=== PATIENT | female | born 1955 | race Caucasian/White ===

== ENCOUNTER 2024-04-21 15:16 | Inpatient (IN) | payer BC, MEDICARE ==
[~2024-04-21] VITALS: Ht 165.1 cm; Wt 65.8 kg
[2024-04-21 19:13] LABS: BASOPHILS % (AUTO) 0.4 % (0.0-2.0); EOSINOPHILS # (AUTO) 0.1 K/uL (0.0-0.7); EOSINOPHILS % (AUTO) 0.4 % (0.0-6.0); HEMATOCRIT 37 % (33-45); HEMOGLOBIN 12.3 g/dL (11.5-14.8); LYMPHOCYTES # (AUTO) 1.3 K/uL (0.8-4.8); LYMPHOCYTES % (AUTO) 9.7 % (20.0-44.0); MEAN CORPUSCULAR HEMOGLOBIN 32 PG (26.0-33.0); MEAN CORPUSCULAR HGB CONC 33 g/dl (31.0-36.0); MEAN CORPUSCULAR VOLUME 95 fL (82-100); MONOCYTES % (AUTO) 7.2 % (2.0-12.0); NEUTROPHILS % (AUTO) 82.3 % (43.0-81.0); PLATELET COUNT (AUTO) 284 K/uL (150-450); RED BLOOD CELL COUNT(AUTO) 3.88 MIL/uL (4.0-5.2); RED CELL DISTRIBUTION WIDTH 13.3 % (11.5-15.0); WHITE BLOOD COUNT (AUTO) 13.4 K/uL (4.3-11.0)
[2024-04-21] MEDS ORDERED: NORT75CA PO (19:25)
[2024-04-21] MEDS ORDERED: ATEN25TA PO (19:25)
[2024-04-21] MEDS ORDERED: QULIPTA PO (19:25)
[2024-04-21 19:53] LABS: CALCIUM, SERUM 8.9 mg/dL (8.5-10.1); CARBON DIOXIDE 27 mmol/L (21-32); CHLORIDE 106 mmol/L (98-107); GLUCOSE 100 mg/dL (74-106); POTASSIUM 3.9 mmol/L (3.5-5.1); SODIUM SERUM 141 mmol/L (136-145); UREA NITROGEN, BLOOD 19 mg/dL (7-18)
[2024-04-21] MEDS ORDERED: ONDANSETRON HCL/PF 4 MG/2 ML VIAL IVP PRN (20:00)
[2024-04-21] MEDS ORDERED: ACETAMINOPHEN 325 MG TABLET PO PRN (20:00)
[2024-04-21] MEDS ORDERED: MAGNESIUM HYDROXIDE 30 ML UDC PO PRN (20:00)
[2024-04-21] MEDS ORDERED: MAG HYDROX/AL HYDROX/SIMETH 30 ML UDC PO PRN (20:00)
[2024-04-21] MEDS ORDERED: Z GUARD REMEDY 4 OZ OINT TP PRN (20:00)
[2024-04-21] MEDS ORDERED: MORPHINE SULFATE INJ 2 MG/ML DISP.SYRIN ONE (20:16)
[2024-04-21] MEDS: MORPHINE SULFATE INJ 2 MG/ML DISP.SYRIN IV PRN (20:23)
[2024-04-21] MEDS: NORTRIPTYLINE HCL 25 MG CAPSULE PO SCH (22:42)
[2024-04-21] MEDS: ATENOLOL 50 MG TABLET PO SCH (22:42)
[2024-04-21 22:50] VITALS: BP 154/75; TEMP 97.7; O2SAT 96
[2024-04-21] MEDS: HYDROCODONE/APAP 5/325MG TABLET PO PRN (22:52)
[2024-04-22 07:35] LABS: BASOPHILS % (AUTO) 0.3 % (0.0-2.0); EOSINOPHILS # (AUTO) 0.2 K/uL (0.0-0.7); EOSINOPHILS % (AUTO) 2.2 % (0.0-6.0); HEMATOCRIT 33 % (33-45); HEMOGLOBIN 11.4 g/dL (11.5-14.8); LYMPHOCYTES % (AUTO) 12.4 % (20.0-44.0); MEAN CORPUSCULAR HEMOGLOBIN 33 PG (26.0-33.0); MEAN CORPUSCULAR HGB CONC 35 g/dl (31.0-36.0); MEAN CORPUSCULAR VOLUME 95 fL (82-100); MONOCYTES # (AUTO) 0.6 K/uL (0.1-1.30); MONOCYTES % (AUTO) 7.4 % (2.0-12.0); NEUTROPHILS # (AUTO) 6.4 K/uL (1.8-8.9); NEUTROPHILS % (AUTO) 77.7 % (43.0-81.0); PLATELET COUNT (AUTO) 252 K/uL (150-450); RED BLOOD CELL COUNT(AUTO) 3.44 MIL/uL (4.0-5.2); WHITE BLOOD COUNT (AUTO) 8.3 K/uL (4.3-11.0)
[2024-04-22 07:46] LABS: CALCIUM, SERUM 8.4 mg/dL (8.5-10.1); CARBON DIOXIDE 29 mmol/L (21-32); CHLORIDE 107 mmol/L (98-107); CREATININE 0.8 mg/dL (0.6-1.3); GLUCOSE 91 mg/dL (74-106); MAGNESIUM 2.2 mg/dL (1.8-2.4); PHOSPHORUS 2.9 mg/dL (2.5-4.9); POTASSIUM 4.4 mmol/L (3.5-5.1); SODIUM SERUM 142 mmol/L (136-145); UREA NITROGEN, BLOOD 16 mg/dL (7-18)
[2024-04-22 08:00] VITALS: BP 113/74; TEMP 98.2; O2SAT 93
[2024-04-22] MEDS: PANTOPRAZOLE 40 MG TABLET.DR PO SCH (08:09)
[2024-04-22] MEDS: ENOXAPARIN SODIUM 40 MG/0.4 ML DISP.SYRIN SQ SCH (15:50)
[2024-04-22 16:00] VITALS: BP 106/61; TEMP 98.1; O2SAT 91
[2024-04-22 20:00] VITALS: BP 117/63; TEMP 97.5; TEMP 97.7; O2SAT 95
[2024-04-23 20:00] VITALS: BP 106/55; TEMP 97.7; O2SAT 95
[2024-04-24 07:00] VITALS: BP 123/69; TEMP 97.7; O2SAT 94
[2024-04-24] MEDS: THERAHONEY GEL 1.5 OZ TUBE TP SCH (08:48)
[2024-04-24] MEDS ORDERED: NORTRIPTYLINE HCL 25 MG CAPSULE PO SCH (22:00)
[2024-04-24] MEDS ORDERED: ATENOLOL 25 MG TABLET PO SCH (22:00)
== END 2024-04-24 11:30 | DRG 536 ==
LOC: ER 15:18 → MED 20:20
PROVIDERS: ADMIT Nurse Practitioner Acute Care; ATTEND Nurse Practitioner Acute Care
DX: S32.810A Multiple fractures of pelvis with stable disruption of pelvic ring, initial encounter for closed fracture (principal); S32.10XA Unspecified fracture of sacrum, initial encounter for closed fracture; L97.929 Non-pressure chronic ulcer of unspecified part of left lower leg with unspecified severity; G43.909 Migraine, unspecified, not intractable, without status migrainosus; W01.0XXA Fall on same level from slipping, tripping and stumbling without subsequent striking against object, initial encounter; Y92.009 Unspecified place in unspecified non-institutional (private) residence as the place of occurrence of the external cause; Z87.81 Personal history of (healed) traumatic fracture
CPT/HCPCS: 36415; 72192-TC; 73502; 80048-TC; 83735-TC; 84100-TC; 84443-TC; 85025-TC; 97110-TC; 97112-TC; 97116-TC; 97530-TC; 97535-TC; G0378; J1650; J2270